=== PATIENT | female | born 1960 | race Hispanic/Latino ===

== ENCOUNTER 2019-09-01 00:09 | Emergency (ER) | payer OTHER ==
[2019-09-01 00:42] LABS: Basophils # (Auto) 0.1 K/mm3 (0.0-0.1); Basophils % (Auto) 1.2 % (0.0-1.8); Eosinophils # (Auto) 0.6 K/mm3 (0.0-0.4); Eosinophils % (Auto) 5.1 % (0.0-4.3); Hematocrit 44.4 % (30.3-42.9); Hemoglobin 14.7 gm/dl (10.1-14.3); Lymphocytes # (Auto) 4.4 K/mm3 (1.2-5.4); Lymphocytes % (Auto) 38.6 % (13.4-35.0); Mean Corpuscular HGB Conc 33 % (30-34); Mean Corpuscular Volume 81 fl (79-97); Monocytes # (Auto) 1.1 K/mm3 (0.0-0.8); Monocytes % (Auto) 9.8 % (0.0-7.3); Platelet Count 339 K/mm3 (140-440); Red Blood Count 5.49 M/mm3 (3.65-5.03); Red Cell Distribution Width 14.1 % (13.2-15.2)
[2019-09-01] MEDS ORDERED: KETOROLAC 30 MG/1 ML INJ IV ONE (00:51)
[2019-09-01] MEDS ORDERED: SODIUM CHLORIDE 0.9% 1000 ML 1,000 ML IV ONE (00:51)
[2019-09-01] MEDS ORDERED: FAMOTIDINE 20 MG/2 ML INJ IV ONE (00:51)
[2019-09-01 01:09] LABS: Alanine Aminotransferase 15 units/L (7-56); Albumin 3.8 g/dL (3.9-5); BUN/Creatinine Ratio 12; Blood Urea Nitrogen 11 mg/dL (7-17); Calcium 9.2 mg/dL (8.4-10.2); Hemolysis Index 21
--- NOTE | 2019-09-01 01:55 | Emergency Department Report ---
ED Abdominal Pain HPI - General Chief Complaint: Abdominal Pain Stated Complaint: ABD PAIN Time Seen by Provider: 09/01/19 00:41 Source: patient Mode of arrival: Ambulatory Limitations: No Limitations - History of Present Illness Initial Comments: This is a 59-year-old female who presents to the emergency room with abdominal pain for 3 days. Past medical history of umbilical hernia, kidney stones, coronary artery disease, and hypertension. Patient states she was recently treated for kidney stone with antibiotics by her primary care doctor. Patient states she is finished amoxicillin yesterday. Patient states she thinks symptoms are possibly related to umbilical hernia. She was told in the past if pain is severe to follow-up in the emergency room. She denies urinary frequency, urgency, dysuria, nausea, vomiting, diarrhea, chest pain, or palpitations. MD Complaint: abdominal pain Onset/Timin -: days(s) Location: periumbilical, LLQ Radiation: none Migration to: no migration Severity: mild Severity scale (0 -10): 3 Quality: stabbing Consistency: intermittent Improves With: nothing Worsens With: nothing Associated Symptoms: denies other symptoms - Related Data Previous Rx's Medication Instructions Recorded Last Taken Type Ciprofloxacin HCl [Ciprofloxacin 500 mg PO Q12HR #10 tab 09/01/19 Unknown Rx TAB] Allergies Allergy/AdvReac Type Severity Reaction Status Date / Time iodine Allergy Shortness Verified 09/01/19 00:10 of Breath ED Review of Systems ROS: Stated complaint: ABD PAIN Other details as noted in HPI Constitutional: denies: chills, fever Respiratory: denies: cough, shortness of breath, wheezing Cardiovascular: denies: chest pain, palpitations Gastrointestinal: abdominal pain. denies: nausea, diarrhea Musculoskeletal: denies: back pain, joint swelling, arthralgia Skin: denies: rash, lesions Neurological: denies: headache, weakness, paresthesias Psychiatric: denies: anxiety, depression ED Past Medical Hx - Past Medical History Previous Medical History?: Yes Hx Hypertension: Yes Hx Heart Attack/AMI: Yes - Surgical History Past Surgical History?: Yes Additional Surgical History: double mastectomy - Social History Smoking Status: Never Smoker Substance Use Type: Alcohol - Medications Home Medications: Home Medications Medication Instructions Recorded Confirmed Last Taken Type Ciprofloxacin HCl [Ciprofloxacin 500 mg PO Q12HR #10 tab 09/01/19 Unknown Rx TAB] ED Physical Exam - General Limitations: No Limitations General appearance: alert, in no apparent distress - Respiratory Respiratory exam: Present: normal lung sounds bilaterally. Absent: respiratory distress - Cardiovascular Cardiovascular Exam: Present: regular rate, normal rhythm. Absent: systolic murmur, diastolic murmur, rubs, gallop - GI/Abdominal GI/Abdominal exam: Present: soft, tenderness (Left upper quadrant), normal bowel sounds. Absent: distended, guarding, rebound, rigid, organomegaly - Extremities Exam Extremities exam: Present: normal inspection - Back Exam Back exam: Absent: CVA tenderness (R), CVA tenderness (L) - Neurological Exam Neurological exam: Present: alert, oriented X3, normal gait - Psychiatric Psychiatric exam: Present: normal affect, normal mood - Skin Skin exam: Present: warm, dry, intact, normal color. Absent: rash ED Course Vital Signs 09/01/19 09/01/19 00:14 02:49 Temperature 97.6 F Pulse Rate 83 64 Respiratory 18 Rate Blood Pressure 189/107 Blood Pressure 179/110 [Left] O2 Sat by Pulse 96 Oximetry ED Medical Decision Making - Lab Data Result diagrams: 09/01/19 00:25 09/01/19 00:25 Lab Results 09/01/19 09/01/19 09/01/19 Range/Units 00:25 00:25 02:49 WBC 11.4 H (4.5-11.0) K/mm3 RBC 5.49 H (3.65-5.03) M/mm3 Hgb 14.7 H (10.1-14.3) gm/dl Hct 44.4 H (30.3-42.9) % MCV 81 (79-97) fl MCH 27 L (28-32) pg MCHC 33 (30-34) % RDW 14.1 (13.2-15.2) % Plt Count 339 (140-440) K/mm3 Lymph % (Auto) 38.6 H (13.4-35.0) % [place] % (Auto) 9.8 H (0.0-7.3) % Eos % (Auto) 5.1 H (0.0-4.3) % Baso % (Auto) 1.2 (0.0-1.8) % Lymph # 4.4 (1.2-5.4) K/mm3 Mcmullen # 1.1 H (0.0-0.8) K/mm3 Eos # 0.6 H (0.0-0.4) K/mm3 Baso # 0.1 (0.0-0.1) K/mm3 Seg Neutrophils % 45.3 (40.0-70.0) % Seg Neutrophils # 5.1 (1.8-7.7) K/mm3 Sodium 140 (137-145) mmol/L Potassium 4.0 (3.6-5.0) mmol/L Chloride 103.9 (98-107) mmol/L Carbon Dioxide 21 L (22-30) mmol/L Anion Gap 19 mmol/L BUN 11 (7-17) mg/dL Creatinine 0.9 (0.7-1.2) mg/dL Estimated GFR > 60 ml/min BUN/Creatinine Ratio 12 % Glucose 125 H (65-100) mg/dL Calcium 9.2 (8.4-10.2) mg/dL Total Bilirubin 0.20 (0.1-1.2) mg/dL AST 17 (5-40) units/L ALT 15 (7-56) units/L Alkaline Phosphatase 113 (35-129) units/L Total Protein 7.3 (6.3-8.2) g/dL Albumin 3.8 L (3.9-5) g/dL Albumin/Globulin Ratio 1.1 % Urine Color Yellow (Yellow) Urine Turbidity Clear (Clear) Urine pH 5.0 (5.0-7.0) Ur Specific [place] 1.012 (1.003-1.030) Urine Protein <15 mg/dl (Negative) mg/dL Urine Glucose (UA) Neg (Negative) mg/dL Urine Ketones Neg (Negative) mg/dL Urine Blood Sm (Negative) Urine Nitrite Neg (Negative) Urine Bilirubin Neg (Negative) Urine Urobilinogen < 2.0 (<2.0) mg/dL Ur Leukocyte Esterase Lg (Negative) Urine WBC (Auto) 60.0 H (0.0-6.0) /HPF Urine RBC (Auto) 17.0 (0.0-6.0) /HPF U Epithel Cells (Auto) 1.0 (0-13.0) /HPF Urine Bacteria (Auto) 1+ (Negative) /HPF - Radiology Data Radiology results: report reviewed CT of the abdomen and pelvis without contrast INDICATION: Abdominal pain COMPARISON: None FINDINGS: Breast implants are noted. The lung bases are clear. Liver, spleen, pancreas, adrenal glands and kidneys show no abnormalities. Gallbladder has been removed. No biliary tree dilation. No fluid or adenopathy in the upper abdomen. Umbilical hernia contains fat. CT of the pelvis shows a normal appendix. No adnexal masses are seen. Uterus has been removed. There is moderate sigmoid diverticulosis without diverticulitis. No pelvic fluid or adenopathy. No bowel obstruction. IMPRESSION: Incidental findings as described. No acute abnormality. - Medical Decision Making This is a 59-year-old female that presents to the emergency room with abdominal pain. Patient is nontoxic appearing and afebrile. Past medical history of hypertension, coronary artery disease, [place], umbilical hernia, and kidney stones. Blood pressure is elevated but patient asymptomatic. Patient admits to taking metoprolol blood pressure medication while waiting to be examined. Work-up: CBC, CMP, urinalysis, and CT of abdomen. CT no acute findings, incidental findings of diverticulosis without diverticulitis. Urinalysis small blood, large leukocyte Estrace, elevated WBCs. All other labs are unremarkable. Patient will be treated for acute cystitis. Start antibiotics. Increase fluid intake. Follow-up with PCP. Patient discharged home stable with strict return instructions. Critical care attestation.: If time is entered above; I have spent that time in minutes in the direct care of this critically ill patient, excluding procedure time. ED Disposition Clinical Impression: Acute cystitis with hematuria, Asymptomatic hypertension Abdominal pain Qualifiers: Abdominal location: periumbilical Qualified Code(s): R10.33 - Periumbilical pain Disposition: TO HOME OR SELFCARE Is pt being admited?: No Condition: Stable Instructions: Abdominal Pain (ED), Urinary Tract Infection in Women (ED), Hypertension (ED) Additional Instructions: Increase fluid intake. Complete antibiotics as prescribed. Follow-up with your primary care doctor in the next 2 to 3 days. Return to the emergency room if worsening symptoms. Prescriptions: Ciprofloxacin HCl [Ciprofloxacin TAB] 500 mg PO Q12HR #10 tab Referrals: [facility] [Outside] - 3-5 Days [facility] [Outside] - 3-5 Days DINORAH JORDAN MD [Staff Physician] - 3-5 Days Time of Disposition: 04:19
--- NOTE | 2019-09-01 02:10 | Cat Scan Report ---
CT of the abdomen and pelvis without contrast INDICATION: Abdominal pain COMPARISON: None FINDINGS: Breast implants are noted. The lung bases are clear. Liver, spleen, pancreas, adrenal gland s and kidneys show no abnormalities. Gallbladder has been removed. No biliary tree dilation. No fluid or adenopathy in the upper abdomen. Umbilical hernia contains fat. CT of the pelvis shows a normal appendix. No adnexal masses are seen. Uterus has been removed. There is moderate sigmoid diverticulosis without diverticulitis. No pelvic fluid or adenopathy. No bowel ob struction. IMPRESSION: Incidental findings as described. No acute abnormality. Automated exposure control was utilized to diminish radiation dose. Signer Name: Iggy Lira MD Signed: 09/01/2019 2:05 AM Workstation Name: [id number]
[2019-09-01 02:50] VITALS: BP 179/110
[2019-09-01 03:03] LABS: Bacteria,Urine 1+ /HPF (Negative); Bilirubin,Urine NEG (Negative); Blood,Urine SM (Negative); Color,Urine Yellow (Yellow); Protein,Urine <15 mg/dL mg/dL (Negative); Urobilinogen,Urine < 2.0 mg/dL (<2.0)
== END 2019-09-01 05:00 | disposition home or self-care (01) ==
LOC: ED 00:09
DX: N30.01 Acute cystitis with hematuria (principal); R10.9 Unspecified abdominal pain; I10 Essential (primary) hypertension; I25.2 Old myocardial infarction; Z98.890 Other specified postprocedural states; Z91.041 Radiographic dye allergy status; Z87.442 Personal history of urinary calculi; Z79.899 Other long term (current) drug therapy
CPT/HCPCS: 36415; 74176; 80053; 81001; 85025; 87086; 96374; 96375; 99284; J1885; J7030; 87076; 87186